=== PATIENT | male | born 1990 | race Caucasian/White ===

== ENCOUNTER 2021-12-09 19:30 | Outpatient (CLI) | payer OTHER | END 2021-12-09 19:31 | disposition home or self-care (01) | LOC: SC 19:30 | PROVIDERS: ATTEND Nurse Practitioner Family | DX: R06.83 Snoring (principal); G47.8 Other sleep disorders; R06.81 Apnea, not elsewhere classified; R51.9 Headache, unspecified; G47.10 Hypersomnia, unspecified; R53.83 Other fatigue | CPT/HCPCS: 95810 ==

== ENCOUNTER 2021-12-30 10:44 | Outpatient (CLI) | payer OTHER ==
[2021-12-30 11:34] VITALS: BP 114/84
--- NOTE | 2021-12-30 11:34 | SLEEP CARE CONSULTATION ---
Information from patient questionnaire entered by Jose Jacobsen. I have reviewed and concur with the information entered by Jose Jacobsen. This document represents the service I personally performed and the decisions made by , Viki Claros ARNP. History of Present Illness Service Date and Time: 12/30/2021 1044 Initial [place] Sleepiness Scale score: 16 (11/2021) Current [place] Sleepiness Scale score: 17 (12/30/21) Additional HPI information: MAGO CARIAS returns for follow up and results of the recently performed polysomnography. The patient was informed of the following findings: No significant sleep disordered breathing with an average AHI of 2.1 and harvinder oxygen saturation of 87%. I explained the pathophysiology behind obstructive sleep apnea. Patient does not have sleep apnea and was advised how weight gain could increase the risk of developing sleep apnea in the future. I strongly encouraged the patient to lose weight. Patient has light to moderate snoring. Snoring can be reduced by weight loss. Weight loss is best achieved with diet consult. Patient instructed to contact PCP for referral. Snoring can also be treated with an oral appliance from a dentist. Advised to check insurance coverage. In addition, an ENT evaluation can be do to see if other treatment is indicated. Patient counseled not drink alcohol less than 4 hours before bedtime as it can increase snoring and apnea. Patient was cautioned about risks of drowsy driving until sleepiness symptoms resolve. Patient denies drowsy driving. Sleep Study - Results Type of Sleep Study: Polysomnography (DONE 12/09/21) Prior sleep studies: No Polysomnography/Home Sleep Study results: IMPRESSION: The quality of the study is good. The patient had slightly reduced sleep efficiency due to sleep onset insomnia. The sleep architecture was relatively normal considering the first- night effect. Respiratory monitoring showed no significant sleep disordered breathing (AHI = 2.1) or hypoxia (harvinder oxygen saturation of 87% and only 0.1% to the total sleep time was spent with oxygen saturation below 90%). The few respiratory events occurred mainly during supine REM sleep (supine AHI = 3.8; non-supine = 1.04). Snore was light to moderate in intensity. There was no significant periodic leg movement of sleep. Cardiac rhythm was normal sinus rhythm without significant arrhythmia. No abnormal behavior (parasomnia) observed during the night. Allergies and Home Medications Home medication list reviewed: Yes (no changes) Review of Systems Review of systems same as previous: Yes (no changes) Physical Exam Vital signs obtained and entered by: KRISTINE MACIAS Blood Pressure: 114/84 (right arm ) Cuff size: regular Heart Rate: 80 O2 Saturation: 97 Height: 5 ft 11.5 in Weight: 251 lb Body Mass Index: 34.4 BMI Classification: Obese Impression and Plan Snoring but no significant sleep disordered breathing. Patient advised that often weight loss will reduce snoring as well as apnea risk. An oral appliance can also be used for snoring. This would require a dental consultation. Patient cautioned not to use other online appliances as can cause bite issues. A list of accredited dentists in [facility] and one local dentist who makes oral appliances is available in the office. Patient is advised to check if insurance will cover. An ENT consult can also be helpful to determine if any other treatment is an option. * Attempt to lose weight * Avoid alcohol consumption near bedtime * The patient is cautioned about driving until sleepiness is completely resolved. * Return as needed for follow up. Counseling Topics: Weight loss health impact Visit Type: In Office Time Spent with Patient (minutes): 10 Provider Statement: I spent 100% of the Face to Face Visit with the patient with greater than 50% spent counseling the patient and coordination of care.
== END 2021-12-30 10:45 | disposition home or self-care (01) ==
LOC: SC 10:44
PROVIDERS: ATTEND Nurse Practitioner Family
DX: R06.83 Snoring (principal); E66.9 Obesity, unspecified; Z68.34 Body mass index [BMI] 34.0-34.9, adult
CPT/HCPCS: 99212